=== PATIENT | female | born 1950 | race Caucasian/White ===

== ENCOUNTER 2016-05-22 14:00 | Inpatient (IN) | payer MEDICARE, OTHER ==
[~2016-05-22] VITALS: Ht 167.6 cm; Wt 96.8 kg
--- NOTE | ~2016-05-22 | DS ---
PATIENT'S NAME: DARYL PHAN [facility] AGE: 65 Y [address] ROOM: [place] [address] LOCATION: GPCU ADMIT DATE: 05/22/2016 Discharge Summary DISCHARGE DATE: 05/28/2016 FAMILY PHYSICIAN: SAVANNAH HAYWOOD. ATTENDING PHYSICIAN: Yeimi Cruz PRIMARY DIAGNOSES: 1. Acute lower gastrointestinal bleeding. 2. Acute colitis, ischemic versus Crohn's. 3. Shock, hypovolemic. 4. Anemia, multifactorial (acute blood loss and chronic disease). 5. Anasarca. 6. Nonalcoholic steatohepatitis. 7. Hepatic encephalopathy. 8. Venous stasis dermatitis of the legs bilaterally. 9. Diabetes mellitus type 2. 10. Acute hypoxic respiratory failure. 11. Charcot foot. 12. Chronic gait instability. 13. Moderate protein-calorie malnutrition. OPERATIONS AND PROCEDURES: Endoscopy was carried out by Gastroenterology on 05/23/2016. Biopsies were taken. These demonstrated crypt distortion with focal crypt abscess formation, ischemic infectious, and Crohn disease. Etiologies were considered. HISTORY OF PRESENTING ILLNESS/REASON FOR ADMISSION: Please refer to the H and P dictated 05/22/2016. HOSPITAL COURSE: The patient was admitted to hospital as noted above with a presumptive diagnosis of acute lower GI bleeding and hypovolemic shock. She received PRBC unit transfusion as well as FFP for correction of underlying coagulopathy secondary to chronic liver disease. Her clinical condition improved relatively quickly. Gastroenterology was consulted. Colonoscopy was recommended and carried out as described above. Biopsies were taken. She did require Flex-Seal placement for loose stools, but this subsided relatively quickly. She was eventually placed back on a diabetic diet. She was placed on antibiotic therapy for presumed cellulitis of the legs; however, this improved significantly with diuresis. Eventually, the antibiotic therapy was discontinued. Her hemoglobin trended upward. Platelets also trended up and her sensorium PATIENT'S NAME: DARYL PHAN [facility] AGE: 65 Y [address] ROOM: [place] [address] LOCATION: GPCU ADMIT DATE: 05/22/2016 Discharge Summary DISCHARGE DATE: 05/28/2016 FAMILY PHYSICIAN: SAVANNAH HAYWOOD ATTENDING PHYSICIAN: Gebremichael,Barkot improved with adherence to the medical regimen and diet. It is suspected that the patient is not fully compliant with her medical regimen nor compliant with her dietary recommendations at home. She was counseled and discussed extensively as well as her . She did receive physical therapy, occupational therapy for strengthening, rehabilitation, and gait training. She was ambulating in the hallways and semi-independent with up to the bathroom. By the end of the 7th day of her hospital stay, it was felt she would be stable enough for discharge to home with plans for close clinical followup with primary care provider as well as eventual followup with her hoseman/washing machine loader in [place]. She refused consideration for home health, but did request to continue physical therapy and occupational therapy as an outpatient. DISCHARGE INSTRUCTIONS: Diet: ADA 1800 calorie per day as tolerated. Activity: As tolerated with Physical Therapy, Occupational Therapy as an outpatient. Ambulate only with a walker. MEDICATIONS: 1. Bumex 2 mg p.o. daily. 2. Calcium carbonate 600 mg p.o. daily. 3. Multivitamin daily. 4. Iron 325 mg p.o. daily. 5. Insulin glargine 15 units subcutaneous q.h.s. 6. Mag oxide 400 mg p.o. t.i.d. 7. Metolazone 10 mg p.o. daily. 8. Percocet 10/325 one tablet p.o. b.i.d. 9. Protonix 40 mg p.o. daily. 10. Potassium 60 mEq p.o. t.i.d. 11. Propranolol 80 mg p.o. q.h.s. 12. Rifaximin 550 mg p.o. b.i.d. 13. Sumatriptan 100 mg p.o. daily. 14. Ropinirole 2 mg p.o. q.h.s. 15. Nystatin applied topically b.i.d. 16. Nitroglycerin 0.4 sublingually q. 5 minutes p.r.n. chest pain. 17. Lactulose 30-45 mL p.o. daily, titrate to 3 bowel movements per day. 18. Patanol ophthalmic drops 1 drop b.i.d. 19. Sucralfate 0.5 g p.o. q.a.c. and h.s. 20. Benadryl 25 mg p.o. q.h.s. 21. Oxybutynin 5 mg p.o. b.i.d. FOLLOWUP: She will follow up with her primary care provider, Radha Hassan, in [place] in 3-5 days. Follow up with hoseman/washing machine loader in 1 month. PATIENT'S NAME: DARYL PHAN [facility] AGE: 65 Y [address] ROOM: [place] [address] LOCATION: GPCU ADMIT DATE: 05/22/2016 Discharge Summary DISCHARGE DATE: 05/28/2016 FAMILY PHYSICIAN: SAVANNAH HAYWOOD ATTENDING PHYSICIAN: Yeimi Cruz CONDITION ON DISCHARGE: Fair. TOTAL TIME SPENT ON DISCHARGE PROCESS: 45 minutes. MD TRAV CALDERÓN/yuri /[id number] d: 05/29/16 0632 t: 06/01/16 1550, DISCHARGE SUMMARY
--- NOTE | ~2016-05-22 | CON ---
PATIENT'S NAME: DARYL PHAN [facility] AGE: 65 Y [address] ROOM: [place] [address] LOCATION: GICU ADMIT DATE: 05/22/2016 Consultation DISCHARGE DATE: FAMILY PHYSICIAN: AXEL PRASAD APRN ATTENDING PHYSICIAN: RICK CRUZ DATE OF CONSULTATION: 05/22/2016 REFERRING PHYSICIAN: Rick Cruz M.D. REASON FOR VISIT: Wound Care visit to evaluate and treat right foot ulcers. HISTORY OF PRESENT ILLNESS: This is a 65-year-old female patient who was admitted to [facility] with a GI bleed. She has a significant history of type 2 diabetes mellitus, Charcot foot, chronic diastolic CHF, and venous insufficiency. The patient has been [facility] before and treated with Unna boot applications. She reports she wears "Velcro" compression stockings at home. She reports her has been applying a topical "ointment" to her right foot ulcers. Her right foot ulcers have been open for months. She is unable to give me an exact time frame. She reports minimal ambulation at home. She is denying foot pain. She denies chest pain or shortness of breath. She admits to feeling weak and fatigued. She admits to melena stools. PAST MEDICAL HISTORY: Type 2 diabetes myelitis, Charcot foot, cirrhosis secondary to nonalcoholic steatohepatitis, splenomegaly, essential hypertension, morbid obesity, esophageal varices, chronic pain syndrome, restless legs syndrome, venous insufficiency, and GERD. PAST SURGICAL HISTORY: Tonsillectomy, cholecystectomy, tubal ligation, vaginal hysterectomy, umbilical hernia repair, wisdom teeth extraction, Lap-Band procedure with removal, banding of esophageal varices, and I and D of right foot on 08/30/[address] Montiel. FAMILY HISTORY: Mother of heart disease. SOCIAL HISTORY: The patient lives with her in [place], [place]. She currently PATIENT'S NAME: DARYL PHAN [facility] AGE: 65 Y [address] ROOM: [place] [address] LOCATION: GICU ADMIT DATE: 05/22/2016 Consultation DISCHARGE DATE: FAMILY PHYSICIAN: AXEL PRASAD APRN ATTENDING PHYSICIAN: JESSICAHERMINIOMONROERICK smokes E-cigarettes. She reports rare alcohol use. ALLERGIES: LATEX, NSAID, SULFA, CELEBREX, NAPROXEN, LYRICA, TRAMADOL, SULFAMETHIZOLE, AND ROFECOXIB. REVIEW OF SYSTEMS: A 10-point review of systems was completed and all are negative except as mentioned above in the HPI. PHYSICAL EXAMINATION: VITAL SIGNS: Temperature 97.6, pulse 67, respirations 30, blood pressure 118/42, and pulse oximetry 96%. Height 5 feet 6 inches and weight 101.8 kg. GENERAL: The patient is alert. Pale in color. In no acute distress. HEENT: Head: Normocephalic, atraumatic. Oral mucosa intact. NEUROLOGICAL: Grossly nonfocal. MUSCULOSKELETAL: Active range of motion in all 4 extremities. EXTREMITIES: +4 lower leg edema. Surprisingly, able to palpate pedal pulses. Capillary refill intact. SKIN: Right dorsal great toe has a diabetic foot ulcer that measures 0.2 cm width x 0.3 cm length x 0.1 cm depth. Wound bed is pink in color. Periwound is slightly callused. There is a small amount of serous exudate noted. No fluctuance noted. Right medial foot ulcer measures 0.8 cm width x 0.5 cm length x 0.2 cm depth. Wound bed is pale pink. There is a tract at 3 o'clock area that measures 0.5 cm. No bone probe. Periwound is callused. Small, yellow, thin exudate noted. Slight fluctuance noted. Heels intact. Buttocks intact. Slight red discoloration to lower legs. LABORATORY DATA: White blood cell count 3.5, hemoglobin 6.1, hematocrit 19.4, platelets 44. Sodium 141, potassium 3.7, chloride 107, bicarb 27, BUN 25, creatinine 0.9, glucose 152, albumin 1.9, and ammonia 73. ASSESSMENT AND PLAN: Again, this is a 65-year-old female patient who was admitted to [facility] with a gastrointestinal bleed. She has a history of type 2 diabetes mellitus, Charcot foot, and chronic diastolic congestive heart failure. Wound Care was consulted to evaluate and assess right foot ulcers. 1. Right foot neuropathic foot ulcers. No purulent exudate noted. We will treat ulcers with Iodosorb gel b.i.d. The patient was instructed to wear her diabetic inserts when walking. 2. Lower leg edema secondary to chronic diastolic congestive heart failure and venous insufficiency. The patient does not have her Velcro stockings here. Instructed nursing to apply size D Tubigrip to her bilateral lower legs from the toes to the popliteal crease, on in the morning and off at PATIENT'S NAME: DARYL PHAN [facility] AGE: 65 Y [address] ROOM: [address] [address] LOCATION: [facility] ADMIT DATE: 05/22/2016 Consultation DISCHARGE DATE: FAMILY PHYSICIAN: AXEL PRASAD APRN ATTENDING PHYSICIAN: RICK CRUZ bedtime. The patient was encouraged to elevate her legs on pillows at all times. 3. Type 2 diabetes mellitus with Charcot foot. The patient is on Accu-Cheks and sliding scale insulin. I would like to thank Dr. Cruz for this consultation. SAM ESCOBEDO APRN FOR MD DAVE HELLER/yuri /[id number] d: 05/23/16 0023 t: 05/30/16 1011, CONSULTATION REPORT
--- NOTE | ~2016-05-22 | HP ---
PATIENT'S NAME: DARYL PHAN [facility] AGE: 65 Y [address] ROOM: [address] [address] LOCATION: GICU ADMIT DATE: 05/22/2016 History & Physical DISCHARGE DATE: FAMILY PHYSICIAN: AXEL PRASAD APRN ATTENDING PHYSICIAN: RICK MONTELONGO DATE OF SERVICE: CHIEF COMPLAINT: Acute GI bleed. HISTORY OF PRESENT ILLNESS: This is a 65-year-old female with history of cirrhosis from BALTAZAR and recent admission and discharge after evaluation for an upper GI bleed, presents from [facility] in [place] after presenting there with complaints of GI bleed. The patient tells me that she woke up early this morning and went to use the bathroom and noticed dark looking stool with her first bowel movement. The patient then subsequently followed to have a few more bowel movements which later appeared to be bright red in color. Upon arrival to the emergency room at [facility], the patient was noted to be hypertensive with blood pressures in the 80s/50s. The patient was also at that time complaining of dizziness and lightheadedness associated with this. Also complains of epigastric area abdominal pain as well. The patient's hemoglobin checked on arrival was 6.9 and was given a unit of blood en route to here. The patient during my evaluation here is awake, alert, and oriented. Appears to be in mild distress and blood pressure in the 80s/50s. Reports that she has had one more bright red blood per rectum on her way here. Also complains of feeling dizziness and lightheadedness; however, denies any chest pain or shortness of breath. The patient was admitted for upper GI bleed workup with an EGD and was noted to have gastritis, but at that time bleeding esophageal varices were not noted. PAST MEDICAL HISTORY: Diabetes; cirrhosis, secondary to BALTAZAR; hepatic encephalopathy. FAMILY HISTORY: Significant for aortic aneurysm in her mother. Father had diabetes as well. SOCIAL HISTORY: The patient is and lives in [place], [place]. Remote history of smoking. No history of alcohol or drug use reported. REVIEW OF SYSTEMS: 10-point review of systems was conducted and were all negative except as mentioned in the HPI. PATIENT'S NAME: DARYL PHAN [facility] AGE: 65 Y [address] ROOM: [id number] [place], [place] [address] LOCATION: GICU ADMIT DATE: 05/22/2016 History & Physical DISCHARGE DATE: FAMILY PHYSICIAN: AXEL PRASAD APRN ATTENDING PHYSICIAN: RICK MONTELONGO PHYSICAL EXAMINATION: VITAL SIGNS: Blood pressure 93/58, heart rate 72, afebrile, respiratory rate 20, and saturating 98% on room air. GENERAL: The patient is awake, alert, and oriented x3, in no acute distress. HEENT: The patient has conjunctival pallor noted. Dry mucosal membranes noted as well. SKIN: Erythema on the right lower extremity and scaly skin noted. HEART: S1, S2. Regular rate and rhythm. ABDOMEN: Soft, nontender, nondistended. Does have epigastric tenderness to palpation. NEURO: Grossly nonfocal. MUSCULOSKELETAL: No joint pain or muscle pain noted. RELEVANT LABS: The patient's hemoglobin per lab from [facility] 6.9, baseline around 8; platelets 58. INR 1.3. ASSESSMENT AND PLAN: 1. Acute gastrointestinal bleed. Suspect an upper gastrointestinal bleed etiology. The patient has two large bore IV access, has gotten a unit of blood. We will give 1 more unit of PRBCs, and we will prepare 3 more units of PRBCs and FFPs and place on standby. Stat GI consult, and the patient is being evaluated for urgent endoscopy. Last endoscopy revealed diffuse gastritis, but nonbleeding esophageal varices. EGD was done at the end of March 2016. 2. Shock. This is related to acute gastrointestinal bleed. Continue management as above. 3. Acute blood loss anemia. Continue with blood transfusions and monitor H and H q.6 hours until hemoglobin stabilizes and bleeding is controlled. 4. Cirrhosis. Secondary to nonalcoholic steatohepatitis. 5. Diabetes. We will use sliding scale insulin and q.6 hour glucose checks while the patient is n.p.o. 6. Deep venous thrombosis prophylaxis. We will use SCDs in the setting of acute blood loss. RICK MONTELONGO MD BG/modl /[id number] D: [id number] T: [id number] HISTORY & PHYSICAL
[2016-05-22 15:39] LABS: BASOPHIL % 0.3 %; EOSINOPHIL # 0.1 K/uL (0.0-0.5); EOSINOPHIL % 1.4 %; IMMATURE GRANULOCYTE % 0.6 %; LYMPHOCYTE # 0.5 K/uL (0.8-4.0); LYMPHOCYTE % 15.2 %; MONOCYTE # 0.3 K/uL (0.0-1.0); MONOCYTE % 7.4 %; MPV 10.5 fl (9.4-12.4); NEUTROPHIL # (ANC) 2.6 K/uL (1.8-7.8); NEUTROPHIL % 75.1 %; NRBC % 0 /100WBC (0-0.00); RDW-CV 19.8 % (11.9-14.6); WBC 3.5 K/uL (4.0-11.0)
[2016-05-22 15:40] LABS: HEMATOCRIT 19.4 % (33.0-46.0); HEMOGLOBIN 6.1 g/dL (10.0-15.0); MCH 31.8 pg (27.0-34.0); MCHC 31.4 gm/dL (32.0-36.5); PLATELET COUNT 44 K/uL (150-450); RBC 1.92 M/uL (3.50-5.50)
[2016-05-22 15:44] LABS: INR - (THERAPEUTIC) 1.3 (0.9-1.1); PROTIME 13.8 SECONDS (9.6-11.1)
[2016-05-22 15:51] LABS: ANION GAP 10.7 (10.0-19.0); BLOOD UREA NITROGEN 25 mg/dL (6-24); CHLORIDE 107 mMol/L (96-110); CO2 27 mMol/L (22-32); CREATININE 0.9 mg/dL (0.5-1.1); ESTIMATED GFR (MDRD EQUATION) > 60; MAGNESIUM 1.3 mg/dL (1.3-2.6); PHOSPHORUS 2.4 mg/dL (2.5-4.9); POTASSIUM 3.7 mMol/L (3.7-5.1); SODIUM 141 mMol/L (135-145)
[2016-05-22 16:07] LABS: ALBUMIN 1.9 gm/dL (3.5-5.0); CALCIUM 7.3 mg/dL (8.5-10.5)
[2016-05-22 20:33] LABS: HEMATOCRIT 22.3 % (33.0-46.0)
[2016-05-22 20:34] LABS: HEMOGLOBIN 7.3 g/dL (10.0-15.0)
[2016-05-23 03:24] LABS: HEMATOCRIT 17.7 % (33.0-46.0); HEMOGLOBIN 5.6 g/dL (10.0-15.0)
[2016-05-23 05:02] LABS: HEMATOCRIT 20.5 % (33.0-46.0); HEMOGLOBIN 6.6 g/dL (10.0-15.0); MCH 31.4 pg (27.0-34.0); MCHC 32.2 gm/dL (32.0-36.5); MCV 97.6 fl (83.0-98.0); MPV 12.2 fl (9.4-12.4); PLATELET COUNT 32 K/uL (150-450); RDW-CV 21.3 % (11.9-14.6); WBC 3.2 K/uL (4.0-11.0)
[2016-05-23 05:12] LABS: INR - (THERAPEUTIC) 1.2 (0.9-1.1); PROTIME 13.2 SECONDS (9.6-11.1)
[2016-05-23 06:12] LABS: ABSOLUTE NEUTROPHIL CT (ANC) 2.8 K/uL (1.8-7.8); LYMPHOCYTE # 0.3 K/uL (0.8-4.0); LYMPHOCYTE % 9 %; SEGMENTED NEUTROPHIL # 2.8 K/uL (1.8-7.8); SEGMENTED NEUTROPHIL % 86 %
[2016-05-23 12:51] LABS: HEMOGLOBIN 8.6 g/dL (10.0-15.0)
[2016-05-23 12:53] LABS: HEMATOCRIT 26.1 % (33.0-46.0)
[2016-05-23 13:07] LABS: ALBUMIN 2.3 gm/dL (3.5-5.0); CALCIUM 7.5 mg/dL (8.5-10.5); POTASSIUM 3.1 mMol/L (3.7-5.1); TOTAL PROTEIN 5.7 g/dL (6.0-8.4)
[2016-05-23 13:08] LABS: ANION GAP 15.1 (10.0-19.0); TOTAL BILIRUBIN 3.1 mg/dL (0.0-1.5)
[2016-05-23 18:21] LABS: HEMATOCRIT 24.3 % (33.0-46.0)
[2016-05-23 18:23] LABS: HEMOGLOBIN 7.8 g/dL (10.0-15.0)
[2016-05-24 00:57] LABS: HEMATOCRIT 24.9 % (33.0-46.0)
[2016-05-24 05:58] LABS: HEMATOCRIT 25.3 % (33.0-46.0); HEMOGLOBIN 8.1 g/dL (10.0-15.0); MCV 96.9 fl (83.0-98.0); MPV 10.8 fl (9.4-12.4); RBC 2.61 M/uL (3.50-5.50); RDW-CV 20.7 % (11.9-14.6); WBC 4.6 K/uL (4.0-11.0)
[2016-05-24 06:01] LABS: PLATELET COUNT 33 K/uL (150-450)
[2016-05-24 06:17] LABS: ALBUMIN 2.1 gm/dL (3.5-5.0); ALK PHOS 63 IU/L (33-138); ALT 13 IU/L (12-78); ANION GAP 11.2 (10.0-19.0); AST 30 IU/L (10-40); BLOOD UREA NITROGEN 13 mg/dL (6-24); CHLORIDE 108 mMol/L (96-110); CO2 24 mMol/L (22-32); CREATININE 0.8 mg/dL (0.5-1.1); ESTIMATED GFR (MDRD EQUATION) > 60; MAGNESIUM 1.4 mg/dL (1.3-2.6); PHOSPHORUS 2.1 mg/dL (2.5-4.9); POTASSIUM 3.2 mMol/L (3.7-5.1); SODIUM 140 mMol/L (135-145); TOTAL PROTEIN 5.5 g/dL (6.0-8.4)
[2016-05-24 06:19] LABS: CALCIUM 7.4 mg/dL (8.5-10.5); TOTAL BILIRUBIN 2.3 mg/dL (0.0-1.5)
[2016-05-24 06:45] LABS: ABSOLUTE NEUTROPHIL CT (ANC) 3.6 K/uL (1.8-7.8); BANDED NEUTROPHIL # 0.1 K/uL (0.0-0.1); BANDED NEUTROPHILS % 3 %; LYMPHOCYTE # 0.5 K/uL (0.8-4.0); LYMPHOCYTE % 10 %; MONOCYTE # 0.4 K/uL (0.0-1.0); SEGMENTED NEUTROPHIL # 3.5 K/uL (1.8-7.8); SEGMENTED NEUTROPHIL % 76 %
[2016-05-24 12:38] LABS: HEMATOCRIT 24.7 % (33.0-46.0); HEMOGLOBIN 7.9 g/dL (10.0-15.0)
[2016-05-24 18:40] LABS: HEMATOCRIT 23.8 % (33.0-46.0)
[2016-05-24 18:43] LABS: HEMOGLOBIN 7.7 g/dL (10.0-15.0)
[2016-05-25 06:50] LABS: HEMATOCRIT 26.1 % (33.0-46.0); HEMOGLOBIN 8.4 g/dL (10.0-15.0); MCH 31.2 pg (27.0-34.0); MCHC 32.2 gm/dL (32.0-36.5); MPV 10.8 fl (9.4-12.4); RBC 2.69 M/uL (3.50-5.50); WBC 5.5 K/uL (4.0-11.0)
[2016-05-25 06:51] LABS: PLATELET COUNT 37 K/uL (150-450)
[2016-05-25 07:04] LABS: ALBUMIN 2.2 gm/dL (3.5-5.0); BLOOD UREA NITROGEN 12 mg/dL (6-24); CALCIUM 7.5 mg/dL (8.5-10.5); CHLORIDE 106 mMol/L (96-110); CO2 25 mMol/L (22-32); CREATININE 0.8 mg/dL (0.5-1.1); ESTIMATED GFR (MDRD EQUATION) > 60; SODIUM 139 mMol/L (135-145)
[2016-05-25 07:05] LABS: ANION GAP 12.2 (10.0-19.0); PHOSPHORUS 1.6 mg/dL (2.5-4.9); POTASSIUM 4.2 mMol/L (3.7-5.1)
[2016-05-25 07:23] LABS: BANDED NEUTROPHIL # 0.2 K/uL (0.0-0.1); BANDED NEUTROPHILS % 4 %; LYMPHOCYTE # 0.7 K/uL (0.8-4.0); LYMPHOCYTE % 12 %; MONOCYTE # 0.7 K/uL (0.0-1.0); SEGMENTED NEUTROPHIL # 3.7 K/uL (1.8-7.8); SEGMENTED NEUTROPHIL % 68 %
[2016-05-25 18:05] LABS: ANION GAP 9.2 (10.0-19.0); BLOOD UREA NITROGEN 13 mg/dL (6-24); CALCIUM 7.7 mg/dL (8.5-10.5); CHLORIDE 104 mMol/L (96-110); CO2 31 mMol/L (22-32); CREATININE 0.9 mg/dL (0.5-1.1); ESTIMATED GFR (MDRD EQUATION) > 60; MAGNESIUM 1.4 mg/dL (1.3-2.6); POTASSIUM 4.2 mMol/L (3.7-5.1); SODIUM 140 mMol/L (135-145)
[2016-05-25 18:20] LABS: HEMATOCRIT 26.6 % (33.0-46.0); HEMOGLOBIN 8.7 g/dL (10.0-15.0)
[2016-05-26 04:09] LABS: BASOPHIL % 0.5 %; EOSINOPHIL # 0.2 K/uL (0.0-0.5); EOSINOPHIL % 5.5 %; HEMOGLOBIN 8.5 g/dL (10.0-15.0); IMMATURE GRANULOCYTE % 0.7 %; LYMPHOCYTE # 0.6 K/uL (0.8-4.0); LYMPHOCYTE % 14.6 %; MCHC 32.7 gm/dL (32.0-36.5); MCV 94.9 fl (83.0-98.0); MONOCYTE # 0.6 K/uL (0.0-1.0); MONOCYTE % 12.5 %; MPV 10.6 fl (9.4-12.4); NEUTROPHIL # (ANC) 2.9 K/uL (1.8-7.8); NEUTROPHIL % 66.2 %; NRBC % 0 /100WBC (0-0.00); RBC 2.74 M/uL (3.50-5.50); RDW-CV 20.1 % (11.9-14.6); WBC 4.4 K/uL (4.0-11.0)
[2016-05-26 04:10] LABS: PLATELET COUNT 40 K/uL (150-450)
[2016-05-26 04:22] LABS: ALBUMIN 2.1 gm/dL (3.5-5.0); ANION GAP 12.5 (10.0-19.0); BLOOD UREA NITROGEN 11 mg/dL (6-24); CALCIUM 7.7 mg/dL (8.5-10.5); CHLORIDE 103 mMol/L (96-110); CO2 28 mMol/L (22-32); CREATININE 0.7 mg/dL (0.5-1.1); ESTIMATED GFR (MDRD EQUATION) > 60; POTASSIUM 4.5 mMol/L (3.7-5.1); SODIUM 139 mMol/L (135-145)
[2016-05-26 04:27] LABS: PHOSPHORUS 1.4 mg/dL (2.5-4.9)
[2016-05-27 06:22] LABS: BASOPHIL % 0.3 %; EOSINOPHIL # 0.2 K/uL (0.0-0.5); EOSINOPHIL % 5.8 %; HEMATOCRIT 28.4 % (33.0-46.0); HEMOGLOBIN 9.2 g/dL (10.0-15.0); IMMATURE GRANULOCYTE % 0.5 %; LYMPHOCYTE # 0.8 K/uL (0.8-4.0); LYMPHOCYTE % 19.9 %; MCHC 32.4 gm/dL (32.0-36.5); MCV 95.6 fl (83.0-98.0); MONOCYTE # 0.5 K/uL (0.0-1.0); MONOCYTE % 11.6 %; MPV 11.2 fl (9.4-12.4); NEUTROPHIL # (ANC) 2.5 K/uL (1.8-7.8); NEUTROPHIL % 61.9 %; NRBC % 0 /100WBC (0-0.00); RBC 2.97 M/uL (3.50-5.50); RDW-CV 20.1 % (11.9-14.6)
[2016-05-27 06:23] LABS: PLATELET COUNT 48 K/uL (150-450)
[2016-05-27 06:33] LABS: ANION GAP 11.2 (10.0-19.0); BLOOD UREA NITROGEN 11 mg/dL (6-24); CALCIUM 8.4 mg/dL (8.5-10.5); CHLORIDE 101 mMol/L (96-110); CO2 30 mMol/L (22-32); CREATININE 0.8 mg/dL (0.5-1.1); ESTIMATED GFR (MDRD EQUATION) > 60; POTASSIUM 4.2 mMol/L (3.7-5.1); SODIUM 138 mMol/L (135-145)
[2016-05-28 04:56] LABS: HEMATOCRIT 27.1 % (33.0-46.0); HEMOGLOBIN 9.2 g/dL (10.0-15.0); MCH 31.6 pg (27.0-34.0); MCHC 33.9 gm/dL (32.0-36.5); MCV 93.1 fl (83.0-98.0); MPV 10.5 fl (9.4-12.4); PLATELET COUNT 58 K/uL (150-450); RBC 2.91 M/uL (3.50-5.50); RDW-CV 19.7 % (11.9-14.6); WBC 4.5 K/uL (4.0-11.0)
[2016-05-28 05:09] LABS: ALBUMIN 2.2 gm/dL (3.5-5.0); ANION GAP 14.6 (10.0-19.0); BLOOD UREA NITROGEN 14 mg/dL (6-24); CHLORIDE 102 mMol/L (96-110); CO2 26 mMol/L (22-32); CREATININE 0.9 mg/dL (0.5-1.1); ESTIMATED GFR (MDRD EQUATION) > 60; PHOSPHORUS 2.6 mg/dL (2.5-4.9); POTASSIUM 4.6 mMol/L (3.7-5.1); SODIUM 138 mMol/L (135-145)
[2016-05-28 06:10] LABS: ABSOLUTE NEUTROPHIL CT (ANC) 3.2 K/uL (1.8-7.8); BANDED NEUTROPHIL # 0.8 K/uL (0.0-0.1); BANDED NEUTROPHILS % 17 %; LYMPHOCYTE # 0.9 K/uL (0.8-4.0); LYMPHOCYTE % 20 %; MONOCYTE # 0.3 K/uL (0.0-1.0); SEGMENTED NEUTROPHIL # 2.4 K/uL (1.8-7.8); SEGMENTED NEUTROPHIL % 53 %
== END 2016-05-28 12:45 | disposition disaster alternative care site (69) | DRG 377 ==
LOC: GPCU 14:43 → GICU 14:43 → GPCU 05-24 14:33
PROVIDERS: Family Medicine; Internal Medicine; Nurse Practitioner Family; ADMIT Internal Medicine
PROC: 30233N1 Transfusion of Nonautologous Red Blood Cells into Peripheral Vein, Percutaneous Approach (ICD-10-PCS; principal; 2016-05-22)
PROC: 30233R1 Transfusion of Nonautologous Platelets into Peripheral Vein, Percutaneous Approach (ICD-10-PCS; principal; 2016-05-22)
PROC: 0DBL8ZX Excision of Transverse Colon, Via Natural or Artificial Opening Endoscopic, Diagnostic (ICD-10-PCS; 2016-05-23)
PROC: 0DJ08ZZ Inspection of Upper Intestinal Tract, Via Natural or Artificial Opening Endoscopic (ICD-10-PCS; 2016-05-23)
PROC: 0DBH8ZX Excision of Cecum, Via Natural or Artificial Opening Endoscopic, Diagnostic (ICD-10-PCS; 2016-05-23)
DX: K92.2 Gastrointestinal hemorrhage, unspecified (principal); R57.1 Hypovolemic shock; J96.01 Acute respiratory failure with hypoxia; K55.039 Acute (reversible) ischemia of large intestine, extent unspecified; E44.0 Moderate protein-calorie malnutrition; K63.3 Ulcer of intestine; K50.90 Crohn's disease, unspecified, without complications; I50.32 Chronic diastolic (congestive) heart failure; D62 Acute posthemorrhagic anemia; L03.116 Cellulitis of left lower limb; L03.115 Cellulitis of right lower limb; K29.70 Gastritis, unspecified, without bleeding; E11.610 Type 2 diabetes mellitus with diabetic neuropathic arthropathy; L97.519 Non-pressure chronic ulcer of other part of right foot with unspecified severity; D63.8 Anemia in other chronic diseases classified elsewhere; K75.81 Nonalcoholic steatohepatitis (NASH); K72.90 Hepatic failure, unspecified without coma; I87.2 Venous insufficiency (chronic) (peripheral); R26.9 Unspecified abnormalities of gait and mobility; D72.819 Decreased white blood cell count, unspecified; Z79.4 Long term (current) use of insulin; Z68.36 Body mass index [BMI] 36.0-36.9, adult; Z87.891 Personal history of nicotine dependence; D69.6 Thrombocytopenia, unspecified
CPT/HCPCS: C9113; J0171; J0690; J2354; J2405; J3475; J3480; J7030; J7040; J7050; J7060; P9012; P9053; P9058

== ENCOUNTER → 2016-05-22 | Outpatient (CLI) | payer MEDICARE, OTHER ==
[~2016-05-22] MED LIST: ALDACTONE100 MG PO; BENADRYL25 MG PO; BUMEX1 MG PO; CALCIUM 600 +1 EAC6 PO; CARAFATE1 GM; CARAFATE1 GM PO; CARAFATE1 GM/10 ML PO; CIPRO250 MG PO; COMPLETE MULTI1 EACH PO; DITROPAN5 MG PO; ENULOSE UD L30 ML/EA PO; FEOSOL325 MG PO; FLORASTOR250 MG PO; GENERLAC10 GM/15 M PO; HUMULIN 70100 UNIT/2 SUB-Q; IMITREX100 MG PO; INDERAL LA80 MG PO; K-TAB ER20 MEQ PO; LANTUS SOL100 UNIT/1 SUB-Q; LEVAQUIN500 MG PO; MAG-OX-400(241400 MG PO; MAGNESIUM250 M1 PO; METOLAZONE10 MG PO; NEURONTIN600 MG PO; NITROSTAT0.4 MG SL; NYSTATIN1 EAC1 TOP; PATANOL 0.1% DR0.1 % OPHTH; PERCOCET 10-321 EACH PO; PROTONIX40 MG PO; REQUIP2 MG PO; VICODIN HP 10-1 EACH; XIFAXAN200 MG PO; XIFAXAN550 MG PO
--- NOTE | ~2016-05-22 | CON ---
PATIENT'S NAME: DARYL PHAN [facility] AGE: 65 Y [address] ROOM: [place] [address] LOCATION: GAIR ADMIT DATE: 05/22/2016 Consultation DISCHARGE DATE: FAMILY PHYSICIAN: PHYSICIAN, UNKNOWN ATTENDING PHYSICIAN: Kitty Duval DATE OF CONSULTATION: 05/22/2016 REASON FOR CONSULTATION: Acute GI bleed. HISTORY OF PRESENT ILLNESS: This is a pleasant, 65-year-old female with a history of a cirrhosis, likely secondary to BALTAZAR. The patient was recently admitted in March 2016 for GI bleed. She has previously been worked up at the [facility] with a liver specialist there and has currently been on diuretics as well as lactulose and Xifaxan at home. The patient did undergo an upper endoscopy on April 11, 2016, showing no bleeding varices. There was a large pill seen lodged in the stomach that was gently pushed into the stomach. Moderate amount of bilious liquid and small amount of fresh blood was seen with no definitive source of bleeding. There was mucosal congestion and some petechial hemorrhages, but no ulcers or tumors. Scattered erosions of the antrum and some petechial hemorrhages seen. The patient most recently states that prior to admission, she noticed 2 very large dark-black stools. After the second large dark stool subsequently followed with bright red bloody stool. She presented to the emergency room at [place], [place], and was found to be hypotensive with blood pressures systolically in the 80s. At that time, the patient was complaining of dizziness and lightheadedness as well as epigastric and abdominal pain. Hemoglobin at that time checked on arrival was 6.0. The patient was given one unit of blood and sent to [facility] for further workup. The patient was seen and examined. She does appear to be slightly confused during our interview. She also appears to be extremely teary as she does have a history of encephalopathy. The patient does complain of some lower abdominal discomfort on examination. She denies any hematemesis or current nausea or vomiting. She does have a history of esophageal varices that have been ligated prior to her arrival. On examination, the patient denies any chest pain, chest pressure, dizziness, night sweats, weight loss, hematemesis, or current nausea or vomiting. PAST MEDICAL HISTORY: Diabetes; cirrhosis, likely secondary to BALTAZAR; and history of hepatic encephalopathy. PAST SURGICAL HISTORY: PATIENT'S NAME: DARYL PHAN [facility] AGE: 65 Y [address] ROOM: [place], [place] [address] LOCATION: [facility] ADMIT DATE: 05/22/2016 Consultation DISCHARGE DATE: FAMILY PHYSICIAN: PHYSICIAN, UNKNOWN ATTENDING PHYSICIAN: Kitty Duval Tonsillectomy, open cholecystectomy, tubal ligation, vaginal hysterectomy, vaginal suspension, umbilical hernia repair, lap band with removal, esophageal varices banding, and I and D of the right foot. SOCIAL HISTORY: The patient denies any history of alcohol abuse or current alcohol use. The patient also denies any tobacco or illicit drug use. She is and lives in [place], [place]. FAMILY HISTORY: The patient's father had lung cancer and in his 40s. The patient's mother had an abdominal aneurysm and heart disease. The patient's brother did undergo a 5-vessel CABG. ALLERGIES: NSAIDS, SULFA, NAPROXEN, SULFAMETHIZOLE, TRAMADOL, CELEBREX, LATEX, AND LYRICA. CURRENT MEDICATIONS: Please refer to the medication administration record. REVIEW OF SYSTEMS: A 10-point review of systems was completed, all were negative except for those identified in the History of Present Illness. PHYSICAL EXAMINATION: GENERAL: A pleasant, 65-year-old female who appears to be in no acute distress. VITAL SIGNS: Temperature 97.7, pulse of 69, respirations of 22, blood pressure 142/49, and oxygen saturation is 97% on 1 L. SKIN: [place], warm, and dry. No jaundice. HEENT: Head is normocephalic and atraumatic. Pupils are equal, round, and reactive to light. Sclerae are clear, nonicteric. Oral mucosa is pink and moist. No thyromegaly. NECK: Soft and supple. CARDIOVASCULAR: Regular. Normal S1 and S2. RESPIRATORY: Respirations even and unlabored. Lungs are clear to auscultation. ABDOMEN: Soft and round. Mildly tender throughout all quadrants. No rebound, rigidity, or guarding noted. Bowel sounds positive x4 quadrants. MUSCULOSKELETAL: No muscle weakness or atrophy. EXTREMITIES: No clubbing or cyanosis. 2+ edema noted to the bilateral lower extremities as well as ulcer noted to her lower extremity. NEUROLOGICAL: The patient is teary during our interview. She does answer questions appropriately. She is positive for asterixis. PATIENT'S NAME: DARYL PHAN [facility] AGE: 65 Y [address] ROOM: [place], [place] [address] LOCATION: GAIR ADMIT DATE: 05/22/2016 Consultation DISCHARGE DATE: FAMILY PHYSICIAN: PHYSICIAN, UNKNOWN ATTENDING PHYSICIAN: Kitty Duval LABORATORY AND DIAGNOSTIC DATA: White blood cell count of 3.5, hemoglobin of 6.1, hematocrit of 19.4, and platelets of 44. Chemistry panel includes a glucose of 152, BUN of 25, creatinine is 0.9, sodium 141, potassium of 3.7, chloride 107, and CO2 of 27. Albumin of 1.9. Phosphorus of 2.4. Magnesium of 1.3. Prothrombin time of 13.8 and INR is 1.3. ASSESSMENT AND PLAN: Again, this is a very pleasant, 65-year-old female who was recently transferred from [place], [place], with upper suspected acute gastrointestinal bleed. 1. Suspected upper gastrointestinal bleed. The patient does have a history of esophageal varices secondary to cirrhosis. She did recently undergo upper endoscopy in March 2016 with no bleeding varices seen, though she did have multiple scattered erosions with petechial hemorrhages. At this time, it is recommended for the patient to undergo an upper endoscopy for further evaluation. The patient is scheduled to be given another unit of blood as transfusion is recommended as needed. 2. Hepatic encephalopathy. The patient is positive for Flap. She does report taking lactulose as prescribed at home, though likely exacerbated secondary to gastrointestinal bleed. Continuing management and monitoring of the patient is recommended. We will also be obtaining an ammonia level. 3. Decompensated liver cirrhosis secondary to nonalcoholic steatohepatitis. The patient does have a history of esophageal varices. She denies any history of paracentesis. At this time, it is recommended for the patient to continue her lactulose as well as her diuretics as well as continue monitoring. Further recommendations to be given status post upper endoscopy as well. 4. Abdominal pain. On examination, the patient did complain of some lower abdominal pain when evaluated by Dr. Cesar Howard. He does feel that full colonoscopy is warranted as well. At the same time of evaluation for upper gastrointestinal bleed, we will complete a colonoscopy for evaluation of lower gastrointestinal bleed with the patient's hematochezia noted. The patient will be given Suprep in preparation for the procedure. Further recommendations to be given status post upper endoscopy and colonoscopy. Thank you for this consult and allowing us to participate in the care of this patient. We will continue to monitor, evaluate, and treat as appropriate. GONZALO ARTHUR APRN FOR CESAR HOWARD MD PATIENT'S NAME: DARYL PHAN [facility] AGE: 65 Y [address] ROOM: [place] [address] LOCATION: [facility] ADMIT DATE: 05/22/2016 Consultation DISCHARGE DATE: FAMILY PHYSICIAN: PHYSICIAN, UNKNOWN ATTENDING PHYSICIAN: Kitty Duval/yuri /[id number] d: 05/23/16 1155 t: 05/23/16 1406, CONSULTATION REPORT
== END | disposition disaster alternative care site (69) ==
LOC: GAIR 13:44
DX: K92.1 Melena (principal); R53.1 Weakness; I95.9 Hypotension, unspecified; E86.1 Hypovolemia; D64.9 Anemia, unspecified; N18.9 Chronic kidney disease, unspecified; E11.9 Type 2 diabetes mellitus without complications; I10 Essential (primary) hypertension; I73.9 Peripheral vascular disease, unspecified; R16.1 Splenomegaly, not elsewhere classified; Z88.6 Allergy status to analgesic agent; Z88.2 Allergy status to sulfonamides; Z88.8 Allergy status to other drugs, medicaments and biological substances
CPT/HCPCS: A0422; A0431; A0436; J7050